=== PATIENT | male | born 2000 | race Two or more races ===

== ENCOUNTER 2021-06-14 18:13 | Emergency (ER) | payer OTHER ==
[~2021-06-14] VITALS: Ht 177.8 cm; Wt 78.0 kg
== END 2021-06-14 22:45 | disposition home or self-care (01) ==
LOC: ER 18:13
DX: R51.9 Headache, unspecified (principal)

== ENCOUNTER 2021-11-22 04:49 | Emergency (ER) | payer OTHER ==
[~2021-11-22] VITALS: Ht 175.3 cm; Wt 77.1 kg
== END 2021-11-22 07:49 | disposition home or self-care (01) ==
LOC: ER 04:49
DX: M79.659 Pain in unspecified thigh (principal)

== ENCOUNTER 2023-12-01 18:52 | Emergency (ER) | payer OTHER ==
[~2023-12-01] VITALS: Ht 177.8 cm; Wt 73.5 kg
== END 2023-12-01 23:04 | disposition home or self-care (01) ==
LOC: ER 18:53
DX: K60.2 Anal fissure, unspecified (principal)

== ENCOUNTER 2023-12-30 10:40 | Emergency (ER) | payer OTHER ==
[~2023-12-30] VITALS: Ht 177.8 cm; Wt 74.8 kg
[2023-12-30 10:44] VITALS: BP 107/71; O2SAT 100
== END 2023-12-30 11:10 | disposition home or self-care (01) ==
LOC: ER 10:42
DX: B35.8 Other dermatophytoses (principal)

== ENCOUNTER → 2023-12-31 | Emergency (ER) | payer OTHER ==
[~2023-12-31] VITALS: Ht 177.8 cm; Wt 72.6 kg
[2023-12-31 21:09] VITALS: BP 123/68; O2SAT 99
== END | disposition left against medical advice (07) ==
LOC: ER 21:01
DX: Z53.21 Procedure and treatment not carried out due to patient leaving prior to being seen by health care provider (principal)